=== PATIENT | female | born 1975 | race Caucasian/White ===

== ENCOUNTER 2016-09-19 19:25 | Emergency (ER) | payer OTHER ==
[~2016-09-19] VITALS: Ht 157.5 cm; Wt 107.3 kg
[2016-09-19 19:27] VITALS: Ht 157.5 cm; Wt 107.3 kg
[2016-09-19] MEDS ORDERED: CEPHALEXIN 500MG HOME PACK 1 EA BTL PO STA (19:41)
[2016-09-19] MEDS ORDERED: CEPH500C PO (19:45)
[2016-09-19] MEDS ORDERED: DIPHTHERIA/TETANUS/PERTUSSIS 0.5 ML SYR/VIAL IM. ONE (19:45)
--- NOTE | 2016-09-19 19:47 | EMERGENCY ROOM VISIT NOTE ---
History First contact with patient: 19:31 Chief Complaint: INFECTION Stated Complaint: POSSIBLE INFECTION ON TATTOO, YELLOWISH Nursing Triage Summary: see triage note History of Present Illness The patient is a 41 year old female who presents to the Emergency Room via private vehicle with complaints of "possible infection on tattoo, yellowish". The patient states that on Monday she received a tattoo to the right ventral forearm. This was performed at a tattoo parlor. She states that since this time she has noticed a yellow discoloration to the central tattoo region. She is concerned that this could be infected. She denies any redness, swelling, drainage, increased pain. She denies any red streaking up the arm. She is unsure of her last tetanus shot. She denies any fevers or chills. Review of Systems A complete 6-point Review of Systems was discussed with the patient, with pertinent positives and negatives listed in the History of Present Illness. All remaining Review of Systems questions can be considered negative unless otherwise specified. Past Medical/Surgical History Asthma, bronchitis, carpal tunnel surgery, partial hip replacement Family History Unremarkable Social History Smoking Status: Current Every Day Smoker Social History: Patient is employed, lives locally, admits to tobacco use and denies alcohol use. Current/Historical Medications Scheduled Cephalexin Monohydrate (Keflex), 500 MG PO QID Physical Exam Vital Signs Date Time Temp Pulse Resp B/P (MAP) Pulse Ox O2 Delivery O2 Flow Rate FiO2 17 19:27 36.6 97 18 161/108 98 Room Air Physical Exam VITAL SIGNS - Vital signs and nursing notes were reviewed. Patient is afebrile , hypertensive at 161/108, non-tachycardic and is saturating well on room air at 98%. GENERAL -41-year-old female appearing her stated age who is in no acute distress. Communicates well with provider and answers questions appropriately. SKIN - there is a new tattoo to the patient's right ventral forearm. There is a yellow-like scale in the central region of the one tattoo. This is nontender to palpation. There is no erythema. No drainage noted. No lymphangitic streaking. Medical Decision & Procedures Medical Decision Patient was seen and evaluated as above. She process to us today status post tattoo with concern over infection. I believe that it is very unlikely at this time she is expressing infection, and is likely a localized skin reaction to the tattoo itself. There are no signs of infection on exam. Subjectively there are no symptoms of infection. Benefits versus risk of beginning antibiotics was discussed with the patient, at this time patient would like to pursue with an antibiotic over concern for potential infection. She will be prescribed Keflex, 500 mg 4 times daily for the next 10 days. She was given a home pack here. She is to have the area rechecked in 48 hours or return sooner if worsening. She was educated upon management, educated on worrisome symptoms which to return, received her tetanus shot, and was discharged home in good condition. In evaluation treatment this patient following differential diagnoses were entertained: Localized skin reaction, cellulitis, among others. Impression Primary Impression: Tatoo irritation Departure Information Dispostion Home / Self-Care Condition GOOD Prescriptions Cephalexin Monohydrate (Keflex) 500 Mg Cap 500 MG PO QID for 9 Days, #36 CAP Prov: Yon Gasca PA-C 09/19/16 Referrals No Doctor, Assigned (PCP) Patient Instructions My [facility] Additional Instructions You were seen in the emergency Department for skin irritation/concern for possible infection and after receiving a tattoo. At this time, it is unclear whether or not there is a definite infection however as we discussed do believe that it is reasonable to treat you for a potential small skin infection with the Keflex. Keflex as an antibiotic which is to be taken every 6 hours, which is 4 times a day for the next 10 days. Because your pharmacy is currently closed, we will provided the first 24 hour supply with the remainder sent to your pharmacy for tile picker tomorrow. We recommend that you have this rechecked in 48 hours by another clinician, by either returning here or following up. The blood pressure was also high here today. Please follow-up with a family doctor regarding today's visit. it may be easiest to call the back of your insurance card to see which providers in the area participate with your insurance for establishing a family doctor. Please return earlier if signs of worsening infection to include increased redness, swelling, drainage, fevers or chills. Please return to the emergency department with any new/concerning symptoms. Thank you for your time.
[2016-09-19 20:12] VITALS: BP 165/89; PULSE 96; TEMP 36.6; O2SAT 98
[2017-02-13] MEDS ORDERED: PHEN-538 PO (21:47)
[2017-02-13] MEDS ORDERED: VNTHFA/IN INH (22:48)
[2017-02-13] MEDS ORDERED: PRED20TA2 PO (22:48)
== END 2016-09-19 20:13 | disposition home or self-care (01) ==
LOC: C.EDB 19:27 → C.EDD 20:13
DX: L81.8 Other specified disorders of pigmentation (principal); J45.909 Unspecified asthma, uncomplicated; F17.200 Nicotine dependence, unspecified, uncomplicated; Z23 Encounter for immunization; Z87.09 Personal history of other diseases of the respiratory system; Z96.649 Presence of unspecified artificial hip joint; Z98.890 Other specified postprocedural states

== ENCOUNTER 2017-02-28 18:47 | Emergency (ER) | payer OTHER ==
[~2017-02-28] VITALS: Ht 157.5 cm; Wt 111.3 kg
[~2017-02-28 18:47] MED LIST: PHEN-538 PO; PRED20TA2 PO
[2017-02-28 18:51] VITALS: BP 136/87; PULSE 109; TEMP 37.1; O2SAT 99; Ht 157.5 cm; Wt 111.3 kg
[2017-02-28] MEDS ORDERED: AMOX875T PO (19:07)
--- NOTE | 2017-02-28 19:09 | EMERGENCY ROOM VISIT NOTE ---
History First contact with patient: 18:53 Chief Complaint: SINUS CONGESTION/PRESSURE Stated Complaint: SINUS COLD MUCOUS NASAL DRIP RUNNY NOSE COUGH Nursing Triage Summary: triage note: pt reports sinus pressure "like there is mucus in my nose that just like comes out of no where and it is hard to talk, and i can feel it go down my throat." pt reports runny nose. "i thinks sinuses but i don't know." pt reports symptoms x 4 weeks. History of Present Illness The patient is a 41 year old female who presents to the Emergency Room via private vehicle accompanied by female with complaints of "sinus cold mucous nasal drip runny nose cough". The patient states that for the past 4 weeks she has had a runny nose, as well as congestion in the ears. She states that when she blows her nose at times is a small amount of blood. There is a mental cough. She denies any chest pain, shortness of breath or abdominal pain. She feels warm but is unsure if she has a fever. Review of Systems A complete 6-point Review of Systems was discussed with the patient, with pertinent positives and negatives listed in the History of Present Illness. All remaining Review of Systems questions can be considered negative unless otherwise specified. Past Medical/Surgical History No pertinent. Family History No pertinent. Social History Smoking Status: Current Every Day Smoker Pt. lives locally. Current/Historical Medications Scheduled Amoxicillin & Pot Clavulanate (Augmentin 875-125 mg), 1 TAB PO BID Prednisone (Prednisone Tab), 3 TAB PO DAILY Scheduled PRN Phenylephrine-Aspirin (Sarah-[place] Plus Sinus F), 1 TAB PO TID PRN for CONGESTION Physical Exam Vital Signs Date Time Temp Pulse Resp B/P (MAP) Pulse Ox O2 Delivery O2 Flow Rate FiO2 02/28/17 18:51 37.1 109 18 136/87 99 Room Air Physical Exam VITAL SIGNS - Vital signs and nursing notes were reviewed. Stable. GENERAL -41-year-old female appearing her stated age who is in no acute distress. Communicates well with provider and answers questions appropriately. SKIN - Without rashes. HEAD - NC/AT. EYES - Sclera anicteric. No hyphema. EARS - No deformities of external structures noted on gross examination bilaterally. No pain elicited with palpation of the tragus bilaterally. External auditory canals without discharge or otorrhea. Tympanic membranes pearly arroyo without retraction or bulging. There is some fluid behind the TM that appears to be noninfectious. Handle of malleus, umbo, cone of light, pars tensa/flaccid all easily visualized. NOSE - Midline and without cyanosis. No epistaxis or purulent drainage noted. MOUTH/OROPHARYNX - Without perioral cyanosis. Buccal mucosa pink and moist and without leukoplakia. Tongue midline with equal elevation of palate bilaterally. No tonsillar hypertrophy, erythema, or exudates noted. Fair dentition noted. Medical Decision & Procedures Medical Decision Patient was seen and evaluated as above. She presents to us today with sinus congestion. She is nontoxic on exam. She is afebrile. I suspect likely has rhinitis that is probably allergic in nature and will be recommended to take Claritin however given the duration of 4 weeks and will add Augmentin. She is also to start a saline spray missed in the nose. She is to follow with family doctor which she is to arrange appointment for. She was educated upon management, educated upon worrisome symptoms which to return, had questions prior to discharge, and was discharged home in good condition. In evaluation treatment this patient following differential diagnoses were entertained: Acute sinusitis, rhinitis, among others. Impression Primary Impression: Rhinitis Departure Information Dispostion Home / Self-Care Condition GOOD Prescriptions Amoxicillin & Pot Clavulanate (Augmentin 875-125 mg) 1 Tab Tab 1 TAB PO BID for 10 Days, #20 TAB Prov: Yon Gasca PA-C 02/28/17 Referrals No Doctor, Assigned (PCP) Patient Instructions ED Smoking Cessation, My [facility] Additional Instructions You were seen in the emergency department for your sinus congestion. You were prescribed Augmentin to be taken every 12 hours for 10 days. This is an antibiotic. All antibiotics have the potential to cause diarrhea. Stop this medication and contact a medical provider if you were to develop any significant adverse side effects including: wheezing, shortness of breath, passing out, vomiting, or a diffuse rash. Always take antibiotics as directed and COMPLETE the ENTIRE course regardless of the improvement of your symptoms. I recommended picking up Claritin [id number] which is known as loratadine 10 mg daily for 4 weeks. I also recommended using saline nasal sprays once daily in the nostrils for one month. I recommend following with a family doctor by calling the back of your insurance card to identify individuals in the area who participate for family doctor. I recommend quitting smoking. You may also consider an [id number] decongestant. Just be careful of the radius are not already in the medications that you are taking. For pain and fever control, you can use the following irbs-rsy-ladyiud medicines : - Regular strength (325mg/tab) Tylenol (acetaminophen) 2 tabs every 4-6 hours as needed. Do not exceed 12 tablets in a 24 hour period. Avoid taking more than 3 grams (3000 mg) of Tylenol per day. This includes any other sources of acetaminophen you may take on a regular basis. - Regular strength (200 mg/tab) Advil (ibuprofen) 1-2 tabs every 4-6 hours as needed. Do not exceed a dose of 3200 mg per day. - For best results, alternate dosing of Tylenol and Advil. Please return with any new/concerning symptoms.
== END 2017-02-28 19:16 | disposition home or self-care (01) ==
LOC: C.EDB 18:48 → C.EDD 19:16
DX: J30.9 Allergic rhinitis, unspecified (principal); F17.210 Nicotine dependence, cigarettes, uncomplicated

== ENCOUNTER 2017-05-16 18:43 | Emergency (ER) | payer OTHER ==
[~2017-05-16] VITALS: Ht 157.5 cm; Wt 109.9 kg
[2017-05-16 18:51] VITALS: TEMP 37.1; Ht 157.5 cm; Wt 109.9 kg
[2017-05-16] MEDS ORDERED: AMOXICILLIN/CLAVULANATE TAB 875 MG TAB PO STA (19:02)
[2017-05-16] MEDS ORDERED: AMOX875T PO (19:06)
--- NOTE | 2017-05-16 19:07 | EMERGENCY ROOM VISIT NOTE ---
History First contact with patient: 18:54 Chief Complaint: SINUS CONGESTION/PRESSURE Stated Complaint: SINUS ISSUES History of Present Illness The patient is a 41 year old female who presents to the Emergency Room with complaints of "sinus issues". The patient states that she has been sick now for several months. She states that she was diagnosed with the flu last week via a positive swab. She states that she felt well, however this past Monday developed sinus congestion. She notes that it has persisted. She notes chills but no fever. Review of Systems A complete 6-point Review of Systems was discussed with the patient, with pertinent positives and negatives listed in the History of Present Illness. All remaining Review of Systems questions can be considered negative unless otherwise specified. Past Medical/Surgical History No pertinent Family History No pertinent Social History Smoking Status: Current Every Day Smoker Pt. lives locally Current/Historical Medications Scheduled Amoxicillin & Pot Clavulanate (Augmentin 875-125 mg), 1 TAB PO BID Prednisone (Prednisone Tab), 3 TAB PO DAILY Scheduled PRN Phenylephrine-Aspirin (Sarah-[place] Plus Sinus F), 1 TAB PO TID PRN for CONGESTION Physical Exam Vital Signs Date Time Temp Pulse Resp B/P (MAP) Pulse Ox O2 Delivery O2 Flow Rate FiO2 05/16/17 18:53 99 Room Air 05/16/17 18:51 37.1 100 18 140/90 99 Room Air Physical Exam VITAL SIGNS - Vital signs and nursing notes were reviewed. Stable. GENERAL - 41-year-old female appearing her stated age who is in no acute distress. Communicates well with provider and answers questions appropriately. SKIN - Without rashes. HEAD - NC/AT. EYES - PERRL with EOMI bilaterally. Sclera anicteric. EARS - No deformities of external structures noted on gross examination bilaterally. External auditory canals without discharge or otorrhea. Tympanic membranes pearly arroyo without retraction or bulging. No fluid or purulent material visualized behind the TM. Handle of malleus, umbo, cone of light, pars tensa/flaccid all easily visualized. NOSE - Midline and without cyanosis. No epistaxis or purulent drainage noted. MOUTH/OROPHARYNX - Without perioral cyanosis. Buccal mucosa pink and moist and without leukoplakia. Tongue midline with equal elevation of palate bilaterally. No tonsillar hypertrophy, erythema, or exudates noted. Fair dentition noted. NECK - Neck with FROM. Supple to palpation. minimal anterior cervical lymphadenopathy noted. No nuchal rigidity. LUNGS - Chest wall symmetric without accessory muscle use, intercostals retractions, or central cyanosis. Normal vesicular breath sounds CTA B/L. No wheezes, rales, or rhonchi appreciated. Medical Decision & Procedures Medications Administered Medications (Trade) Dose Ordered Sig/Jordon Route Start Time Stop Time Status Last Admin Dose Admin Amoxicillin/ Clavulanate Potassium (Augmentin Tab) 875 mg ONE STAT PO 05/16/17 19:02 05/16/17 19:03 DC 05/16/17 19:07 875 MG Medical Decision Patient was seen and evaluated as above. She presents to us today with sinus congestion, and upper respiratory tract symptoms times several months. She is nontoxic on exam. She is afebrile. I we'll treat her with antibiotics given the length and duration of her symptoms. She will be given Augmentin. One tablet by mouth twice a day 10 days. She'll be given the first dose here with the remainder sent to her pharmacy. Rapid strep was obtained and found to be negative. She is to take decongestants. She is to use saline nasal spray. She was educated upon management, educated upon worrisome symptoms which to return, had questions answered prior to discharge, and was discharged home in good condition. She is to follow closely with her family doctor. She notes that she really has an appointment established. In evaluation treatment this patient the following differential diagnoses were obtained: Sinusitis, pharyngitis, pneumonia, among others. Impression Primary Impression: Sinusitis, acute Departure Information Dispostion Home / Self-Care Condition GOOD Prescriptions Amoxicillin & Pot Clavulanate (Augmentin 875-125 mg) 1 Tab Tab 1 TAB PO BID, #19 TAB Prov: Yon Gasca PA-C 05/16/17 Referrals No Doctor, Assigned (PCP) Patient Instructions My [facility] Additional Instructions You were seen in the emergency department for your sore throat and sinus infection. The results of your rapid strep screen were found to be negative. You will be contacted in 48-72 hrs if the results of your culture are found to be positive and any change in antibiotics is necessary. You were prescribed Augmentin to be taken every 12 hours. You were given the first dose here with the next dose scheduled for tomorrow around 7:30 AM. It is then every 12 hours. This is an antibiotic. All antibiotics have the potential to cause diarrhea. Stop this medication and contact a medical provider if you were to develop any significant adverse side effects including: wheezing, shortness of breath, passing out, vomiting, or a diffuse rash. Always take antibiotics as directed and COMPLETE the ENTIRE course regardless of the improvement of your symptoms. For the congestion I do recommend a decongestant such as Sudafed. Please take this according to the package. For pain and fever control, you can use the following [id number] medicines (if >12 yo): - Regular strength (325mg/tab) Tylenol (acetaminophen) 2 tabs every 4-6 hours as needed. Do not exceed 12 tablets in a 24 hour period. Avoid taking more than 3 grams (3000 mg) of Tylenol per day. This includes any other sources of acetaminophen you may take on a regular basis. - Regular strength (200 mg/tab) Advil (ibuprofen) 1-2 tabs every 4-6 hours as needed. Do not exceed a dose of 3200 mg per day. - For best results, alternate dosing of Tylenol and Advil. In addition to your prescribed medications, you can also use the following home remedies: - Warm salt-water gargles 3 times per day can soothe your throat and help to fight infection. - Warm tea with honey can soothe your throat. Return to the emergency department if your symptoms persist or worsen over the next 2-3 days despite treatment course outlined above. Return to the emergency department if you develop the following symptoms of: inability to swallow solids , liquids, or drool; excessive wheezing or inability to catch your breath; or intractable fever or pain. Follow up with your primary care provider in 2-3 days from today's emergency department visit.
[2017-05-16 19:16] VITALS: BP 146/108; PULSE 120; O2SAT 97
== END 2017-05-16 19:18 | disposition home or self-care (01) ==
LOC: C.EDB 18:44 → C.EDD 19:18
DX: J01.90 Acute sinusitis, unspecified (principal); F17.210 Nicotine dependence, cigarettes, uncomplicated